=== PATIENT | male | born 1995 | race Native Hawaiian/Other Pacific Islander ===

== ENCOUNTER 2016-11-04 04:47 | Inpatient (IN) | payer OTHER ==
[2016-11-04 06:18] LABS: MEAN CORPUSCULAR HEMOGLOBIN 28.9 pg (27.0-33.0); MEAN CORPUSCULAR HGB CONC 34.7 g/dl (32.0-36.5); MEAN CORPUSCULAR VOLUME 83.3 fl (80.0-96.0); RED CELL DISTRIBUTION WIDTH 11.5 % (11.5-14.5); WHITE BLOOD COUNT 10.2 K/mm3 (4.0-10.0)
[2016-11-04 06:42] LABS: ALBUMIN/GLOBULIN RATIO 1.14 (1.00-1.93); ALKALINE PHOSPHATASE 70 U/L (45-117); ALT/SGPT 27 U/L (12-78); ANION GAP 10 MEQ/L (8-16); AST/SGOT 17 U/L (15-37); BILIRUBIN,DIRECT 0.1 MG/DL (0.0-0.2); BILIRUBIN,TOTAL 0.5 MG/DL (0.2-1.0); BLOOD UREA NITROGEN 11 MG/DL (7-18); CALCIUM LEVEL 8.9 MG/DL (8.5-10.1); CARBON DIOXIDE LEVEL 25 MEQ/L (21-32); CHLORIDE LEVEL 106 MEQ/L (98-107); CREATININE FOR GFR 0.92 MG/DL (0.70-1.30); GLOMERULAR FILTRATION RATE > 60.0 (>60); GLUCOSE, FASTING 100 MG/DL (70-105); POTASSIUM SERUM 3.6 MEQ/L (3.5-5.1); SODIUM LEVEL 141 MEQ/L (136-145); TOTAL PROTEIN 7.5 GM/DL (6.4-8.2)
[2016-11-04] MEDS ORDERED: TYLE1TAB5 PO (08:11)
[2016-11-04 10:04] LABS: METHADONE URINE NEGATIVE (NEGATIVE)
[2016-11-04] MEDS ORDERED: MAALOX 30 ML SUSP *UDC PO PRN (15:30)
[2016-11-04] MEDS ORDERED: ACETAMINOPHEN TAB 650MG DOSE (2X325MG) PO PRN (15:30)
[2016-11-04] MEDS ORDERED: MOM 30ML SUSPENSION UDC PO PRN (15:30)
[2016-11-04] MEDS ORDERED: traZODone 50 MG TAB PO PRN (15:30)
[2016-11-04 18:00] VITALS: BP 107/61
[2016-11-05 06:16] VITALS: BP 109/56
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
[2016-11-05] MEDS: VENLAFAXINE **XR** 37.5 MG CAPSULE PO SCH (12:13)
[2016-11-05 18:41] VITALS: BP 115/78
--- NOTE | 2016-11-05 22:33 | HPE ---
DATE OF ADMISSION: 11/04/2016 HISTORY OF PRESENT ILLNESS: Please refer to psychiatric history and evaluation for further details on this admission. This examination and history is intended for medical issues, which may need treatment, followup or consultation on this 21-year-old male. ALLERGIES: No known allergies. PRIMARY CARE PROVIDER: [facility]. 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 EtOH is once every other month, on special occasions. Smokes E-cigarettes. Recreational drug use is none. PAST MEDICAL HISTORY: Negative. PAST SURGICAL HISTORY: Negative. HOME MEDICATIONS: - Tylenol PM one by mouth at night as needed for sleep FAMILY HISTORY: Noncontributory. LABORATORY STUDIES: WBC 10.7, hemoglobin 14.9, hematocrit 43.1, platelets 195. CMP was normal. Toxicology screen was negative. REVIEW OF SYSTEMS: Ten systems review was done and was unremarkable. PHYSICAL EXAMINATION: GENERAL: 21-year-old cooperative male in no acute distress. Weight 69.4 kg, blood pressure 130/80, pulse 88, respiratory rate 18, temperature 97.7, oxygen saturation 97% on room air. HEENT: Pupils are equal and reactive to light. Extraocular muscles intact. Sclerae clear. Conjunctivae normal. No facial asymmetry. Pharynx, gums and tongue pink and moist. Tongue is midline. NECK: Supple without lymphadenopathy, thyromegaly or goiter. Carotids 2+ without bruit. CHEST: Clear to auscultation without wheeze or retraction. HEART: Regular. ABDOMEN: Benign. Bowel sounds positive. GENITOURINARY/RECTAL: Not done. EXTREMITIES: Equal strength. Full range of motion. No cyanosis, clubbing or edema. Peripheral pulses equal and palpable bilaterally. SKIN: Warm and dry. IMPRESSION/PLAN: 1. Psychiatric plan per psychiatry. 2. No acute medical issues.
[2016-11-06 06:39] VITALS: BP 114/59
[2016-11-06] MEDS: VENLAFAXINE **XR** 37.5 MG CAPSULE PO SCH (09:18)
--- NOTE | 2016-11-06 11:50 | MHIPNPDOC ---
[facility] Progress Note Progress Note DATE OF SERVICE: 11/06/16 HISTORY: Day 3 of admission. 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 VITAL SIGNS: See below. NEW TEST RESULTS: na CURRENT MEDICATIONS: See below. MENTAL STATUS EXAMINATION: Patient is a 21-year old male, who is wearing hospital attire, eye glasses, playing with wax paper from a candy wrapper, fair eye contact Speech: Is clear and spontaneous Language skills are intact Thought processes including: linear, goal directed, logical Thought content: appropriate. Abstract reasoning, and computation: fair (due to culture differences). Description of associations: good. Description of abnormal or psychotic thoughts: Pt says the voice he heard before in [place] saying "Just do it", were his own thoughts. He denies Auditory and visual disturbance. Judgment: fair Insight: fair. Orientation: well oriented x 4. Recent and remote memory: intact Attention span and concentration: fair Fund of knowledge: full. Mood: depressed. Affect: flat DIAGNOSES [place] I: Unspecified depressive disorder. Rule out major depressive disorder. Adjustment disorder with depressed mood. Rule out bipolar disorder. [place] II: Deferred. [place] III: None acute. ASSESSMENT:Pt minimizes need for admission and events leading up to admission. States his sister has 3 children [address] and is in a very un- supportive relationship. She has a job and is asking other family members to watch her children while she works. She has a h/o stealing and much of her family wants little or nothing to do with her. Pt is trying to avoid her. He has given her money in the past. He states that he can let go of this situation and move on and would like to be discharged. Explained role of [employer] in discharge planning and assured him we would contact [facility] to schedule a discharge meeting for as soon as time as possible for JO[facility] to come in. Pt verbalized understanding of this. Pt spends a large portion of non-work day on the conputer playing Adventure games. pt is tolerating Effexor without difficulty, no SOB or skin rash MANAGEMENT PLAN: continue Effexor taper, monitor, continue close obs. Pt enc to attend programming while on the unit. TIME SPENT: 30 minutes. Vital Signs Vital Signs Date Time Temp Pulse Resp B/P (MAP) Pulse Ox O2 Delivery O2 Flow Rate FiO2 11/06/16 06:39 98.6 74 18 114/59 (77) 11/04/16 11:30 100 11/04/16 05:29 Room Air Current Medications Current Medications Acetaminophen (Tylenol Tab) 650 mg Q6HP PRN PO HEADACHE or DISCOMFORT; Start at 15:30; Stop 12/04/16 at 15:29 Al Hydrox/Mg Hydrox/Simethicone (Mylanta) 30 ml Q4HP PRN PO HEARTBURN/ INDIGESTION; Start 11/04/16 at 15:30; Stop 12/04/16 at 15:29 Home Med (Med Rec Complete!) ASDIRECTED XX ; Start 11/04/16 at 08:15; Stop at 08:20; Status DC Magnesium Hydroxide (Milk Of Magnesia) 30 ml DAILYPRN PRN PO CONSTIPATION; Start 11/04/16 at 15:30; Stop 12/04/16 at 15:29 Trazodone HCl (Desyrel) 50 mg QHSP PRN PO INSOMNIA; Start 11/04/16 at 15:30; Stop 12/04/16 at 15:29 Venlafaxine HCl (Effexor Xr) 37.5 mg DAILY PO Last administered on t 09:18; Start 11/05/16 at 09:00; Stop 12/05/16 at 08:59 Allergies Coded Allergies: No Known Allergies (Unverified , 11/04/16) Ena Hammond Nov 06, 2016 11:50
[2016-11-06 18:09] VITALS: BP 105/55
[2016-11-07] MEDS: VENLAFAXINE **XR** 75MG CAPSULE PO SCH (08:59)
--- NOTE | 2016-11-07 11:08 | MHIPNPDOC ---
[facility] Progress Note Progress Note DATE OF SERVICE: 11/07/16 HISTORY: day 4 of admission for suicidal ideation, worsening depression. VITAL SIGNS: See below. NEW TEST RESULTS: na CURRENT MEDICATIONS: See below. 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 He is wearing glasses, has dark hair, and wears hospital attire. Speech: Is clear and logical Language skills are intact. Thought processes including: goal directed. Thought content: appropriate. Abstract reasoning, and computation: good. Description of associations:good. Description of abnormal or psychotic thoughts: pt is not psychotic, pt would like help with depression, pt denies thoughts of suicide today. Judgment: good Insight: good, . Orientation: A & O x 4 Recent and remote memory:grossly intact Attention span and concentration: good Fund of knowledge: fair Mood: depressed. Affect: constricted. DIAGNOSES: [place] I: Unspecified depressive disorder. Rule out major depressive disorder. Adjustment disorder with depressed mood. Rule out bipolar disorder. [place] II: Deferred. [place] III: None acute. ASSESSMENT:pt slept well through the night. He is tolerating Effexor without problems. Denies sweating, SOB or skin rash. Denies /v/d/n . he is eating at most meals and remaining well hydrated. Participating in unit milieu. MANAGEMENT PLAN: Effexor er raised to 75 mg today. 1st dose is this a.m. continue observation. TIME SPENT: 15 minutes. Vital Signs Vital Signs Date Time Temp Pulse Resp B/P (MAP) Pulse Ox O2 Delivery O2 Flow Rate FiO2 11/06/16 18:09 98.5 74 16 105/55 (72) 11/04/16 11:30 100 11/04/16 05:29 Room Air Current Medications Current Medications Acetaminophen (Tylenol Tab) 650 mg Q6HP PRN PO HEADACHE or DISCOMFORT; Start at 15:30; Stop 12/04/16 at 15:29 Al Hydrox/Mg Hydrox/Simethicone (Mylanta) 30 ml Q4HP PRN PO HEARTBURN/ INDIGESTION; Start 11/04/16 at 15:30; Stop 12/04/16 at 15:29 Home Med (Med Rec Complete!) ASDIRECTED XX ; Start 11/04/16 at 08:15; Stop at 08:20; Status DC Magnesium Hydroxide (Milk Of Magnesia) 30 ml DAILYPRN PRN PO CONSTIPATION; Start 11/04/16 at 15:30; Stop 12/04/16 at 15:29 Trazodone HCl (Desyrel) 50 mg QHSP PRN PO INSOMNIA; Start 11/04/16 at 15:30; Stop 12/04/16 at 15:29 Venlafaxine HCl (Effexor Xr) 37.5 mg DAILY PO Last administered on 09:18; Start 11/05/16 at 09:00; Stop 11/07/16 at 07:36; Status DC Venlafaxine HCl (Effexor Xr) 75 mg DAILY PO Last administered on 11/07/16 08:59; Start 11/07/16 at 09:00; Stop 12/07/16 at 08:59 Allergies Coded Allergies: No Known Allergies (Unverified , 11/04/16) Ena Hammond Nov 07, 2016 11:08
[2016-11-07 18:00] VITALS: BP 110/57
[2016-11-08 07:04] VITALS: BP 123/58
[2016-11-08] MEDS: VENLAFAXINE **XR** 75MG CAPSULE PO SCH (09:06)
--- NOTE | 2016-11-08 13:28 | MHIPNPDOC ---
[facility] Progress Note Progress Note DATE OF SERVICE: 11/08/16 HISTORY: day 5 of admission for depression with SI. VITAL SIGNS: See below. NEW TEST RESULTS: na CURRENT MEDICATIONS: See below. MENTAL STATUS EXAMINATION: Patient is a 21-year old male, who is [place] to [facility], wears glasses, is small boned, makes good eye contact and is pleasant. Speech: Is spontaneous and logical Language skills are grossly intact Thought processes including: goal directed Thought content: appropriate Abstract reasoning, and computation: good. Description of associations: good. Description of abnormal or psychotic thoughts: pt has not been psychotic since admission. No h/o psychosis. Denies SI and HI. No delusions, obsessions or compulsions. Judgment: good Insight: good. Orientation: well oriented to day, place, time and situation, as well as person. Recent and remote memory: grossly intact Attention span and concentration: good Fund of knowledge: full Mood: euthymic. Affect: congruent. DIAGNOSES: ASSESSMENT:met with pt for 1:1. He is tolerating the increase in venlafaxine well. Denies side effects. No bloating, n/v/d. No dizziness, sob or rash. Pt denies heart palpitations. No diaphoresis. Pt is visible in milieu. He attends structured programs and verbalizes benefit from them including learning to let boundaries with his family. Today we discussed that it may not always "feel" right to "do" the right thing but as time goes along it will get easier to enforce boundaries. He smiled at this and acknowledged understanding of what telegraphic typewriter operator chief was telling him. Pt is sleeping well without the use of sleep aids. Appetite has improved, concentration is good. Interest is good. No psychomotor retardation or agitation observed or reported. Pt denies thoughts of wanting to and can voice that he wants to live. He needs his earnings from the to support himself and can't afford to support his siblings too. Gopal is observed interacting with others with consideration and respect. He is helpful to peers and shares his talents readily. MANAGEMENT PLAN: Gopal has clearly benefitted from this admission. he understands that he needs to take Effexor daily, not skip doses or stop the medication abruptly. Informed about tapering to prevent withdrawal sx if he stops the medication. He uderstands he will need follow up for med mgt and therapy at [facility]. He intends to do what is required to keep his depression under control. He knows he can rely on others nearby to help him if he has a return of depression or suicidal thinking. He is aware of the national suicide prevention hotline and how and when to use it. Pt is scheduled for [facility] tomorrow with discharge likely following the meeting. TIME SPENT: 25 minutes. Vital Signs Vital Signs Date Time Temp Pulse Resp B/P (MAP) Pulse Ox O2 Delivery O2 Flow Rate FiO2 11/08/16 07:04 98.2 63 16 123/58 (79) Room Air 11/04/16 11:30 100 Current Medications Current Medications Acetaminophen (Tylenol Tab) 650 mg Q6HP PRN PO HEADACHE or DISCOMFORT; Start at 15:30; Stop 12/04/16 at 15:29 Al Hydrox/Mg Hydrox/Simethicone (Mylanta) 30 ml Q4HP PRN PO HEARTBURN/ INDIGESTION; Start 11/04/16 at 15:30; Stop 12/04/16 at 15:29 Home Med (Med Rec Complete!) ASDIRECTED XX ; Start 11/04/16 at 08:15; Stop at 08:20; Status DC Magnesium Hydroxide (Milk Of Magnesia) 30 ml DAILYPRN PRN PO CONSTIPATION; Start 11/04/16 at 15:30; Stop 12/04/16 at 15:29 Trazodone HCl (Desyrel) 50 mg QHSP PRN PO INSOMNIA; Start 11/04/16 at 15:30; Stop 12/04/16 at 15:29 Venlafaxine HCl (Effexor Xr) 37.5 mg DAILY PO Last administered on 09:18; Start 11/05/16 at 09:00; Stop 11/07/16 at 07:36; Status DC Venlafaxine HCl (Effexor Xr) 75 mg DAILY PO Last administered on 11/08/16 09:06; Start 11/07/16 at 09:00; Stop 12/07/16 at 08:59 Allergies Coded Allergies: No Known Allergies (Unverified , 11/04/16) Ena Hammond Nov 08, 2016 13:28
[2016-11-08 18:00] VITALS: BP 111/58
[2016-11-09 06:30] VITALS: BP 109/59
[2016-11-09] MEDS: VENLAFAXINE **XR** 75MG CAPSULE PO SCH (09:11)
[2016-11-09] MEDS ORDERED: VENL75CA2 PO (09:33)
--- NOTE | 2016-11-09 09:57 | MHDSPDOC ---
[facility] Discharge Summary Discharge Summary DATE OF ADMISSION: Nov 04, 2016 at 11:20 DATE OF DISCHARGE: November 09, 2016 DISCHARGE DIAGNOSES: [place] I: Adjustment disorder with depressed mood. [place] II: Deferred. [place] III: None acute. 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 He was driving to the hospital by an MP who showed awareness and concern for Melba emotional state and feelings regarding personal safety. Pt arrive don the Unit on November 04 and began asking for discharge shortly afterward. he quickly assimilated to the unit and was visible helping others, attending groups and engaging in social activities with peers. His interactions have been appropriate and respectful. He is helpful toward peers. Pt was admitted for matters related to his family and his inability to set limits with with them. Gopal believes his group attendance and participation has made him more aware of boundaries and how to go about putting them in place when necessary. CONSULTANTS INVOLVED: lab, medicine and psychiatry TREATMENT AND PROGRESS ON THE UNIT : Bin was started on Venlafaxine at 37. 5mg for help with anxiety and depression. He was fully made aware of possible side effects, potential risks and likely benefits of the medication. He verbalized full knowledge of these things. He started admitting improvement in mood after several days on the unit and taking the medication. He pay attention to hygiene needs. He ate regularly at all meals. He slept well without the assistance of sleep aids. HOSPITAL COURSE:Venlafaxine was started at 37.5 mg po in a.m. pt tolerated medication well without GI side effects, no skin rash or SOB. Dose increased after 2 doses to 75 mg and has remained at that level. Pt has had a positive response to the medication and finds it beneficial. Trazodone was available during his inpatient stay but he did not need a sleep aid during this treatment session. He slept well most every night, denies nightmares or repetitive dreams. Pt shared that his family frequently seeks him out for money and he needs the salary he earns for his own goals and ambitions. He has done a lot already to help his father and siblings and he cannot continue to finance them. DISCHARGE ASSESSMENT: Pt has benefitted from medication management, secure environment and therapeutic programming since his admission on 11/04. He demonstrated improvement by change in affect, showing interest in others, showing interest in acquiring new coping skills, helping others and taking medication as prescribed. He shows a good understanding of his disorder and how to manage it correctly. He acknowledged that he must take venlafaxine daily, not skip doses and not stop the medication without discussing with his outpatient provider first. Pt is not suicidal. He has not demonstrated any psychotic symptoms during this admission. 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 He states he no longer has even fleeting thoughts of suicide and feels he is in a better frame of mind. He is confident he can manage his stressors effectively without any danger to self or to others. He remains committed to the . MENTAL STATUS EXAMINATION ON DISCHARGE: Patient is a 21-year old male, who is wearing hospital pj's, glasses, is dark complected, from [place] and pleasant. Speech is clear and spontaneous. Language skills are very good Thought processes including: goal directed. Thought content: appropriate Abstract reasoning, and computation: good Description of associations: good Description of abnormal or psychotic thoughts: no psychotic symptoms observed or noted. Pt is now denying suicidal intent, plan or thoughts Judgment: good Insight: good Orientation to person, place, time and situation. Recent and remote memory: grossly intact Attention span and concentration: good Fund of knowledge: full Mood: euthymic. Affect:calm, in control, congruent MEDICATIONS ON DISCHARGE: - venlafaxine er (Effexor ER) 75 mg po q a.m. PLAN/FOLLOWUP ARRANGEMENTS: [facility] for medication management and individual therapy. pt needs support with consistent boundary setting and not feeling guilty when he does what he has to do in regards to what help he extends to his family. The amount of time spent in the coordination of care for this patient was approximately 60 minutes. Vital Signs/I&Os Vital Signs Date Time Temp Pulse Resp B/P (MAP) Pulse Ox O2 Delivery O2 Flow Rate FiO2 11/09/16 06:30 98.3 63 16 109/59 (76) 11/08/16 07:04 Room Air 11/04/16 11:30 100 Medications Scheduled Venlafaxine HCl (Venlafaxine HCl ER) 75 Mg Cap, 75 MG PO DAILY for MOOD for 7 Days, #7 Allergies Coded Allergies: No Known Allergies (Unverified , 11/04/16) Ena Hammond Nov 09, 2016 09:57
== END 2016-11-09 10:30 | disposition home or self-care (01) | DRG 881 ==
LOC: M ED 04:47 → M ED INP 11:20 → M PSY 12:00
PROVIDERS: ADMIT Psychiatry & Neurology Psychiatry; ATTEND Psychiatry & Neurology Psychiatry
DX: F43.21 Adjustment disorder with depressed mood (principal); F41.9 Anxiety disorder, unspecified; Z81.1 Family history of alcohol abuse and dependence; Z62.811 Personal history of psychological abuse in childhood